=== PATIENT | male | born 1945 | race Caucasian/White ===

== ENCOUNTER 2019-08-22 11:58 | Emergency (ER) | payer OTHER, SELFPAY ==
[2019-08-22] VITALS (7 sets, daily range): BP systolic 121–140; BP diastolic 54–85; PULSE 50–109; RESP 12–19; TEMP 36.2; O2SAT 95–100; BMI 24.4
--- NOTE | 2019-08-22 12:19 | DI.RAD.S_ITS ---
PROCEDURE: XR CHEST 1V INDICATIONS: chest pain TECHNIQUE: One view of the chest was acquired. COMPARISON: None. FINDINGS: Surgical changes and devices: None. Lungs and pleura: Lungs are clear. No pleural effusions or pneumothorax. Mediastinum: Mediastinal contours appear normal. Heart size is normal. Bones and chest wall: No suspicious bony lesions. Overlying soft tissues appear unremarkable. IMPRESSION: 1. No acute cardiopulmonary disease. Dictated by: Fabio Horvath M.D. on 08/22/2019 at 11:43 Approved by: Fabio Horvath M.D. on 08/22/2019 at 11:43
--- NOTE | 2019-08-22 12:49 | DI.CT.S_ITS ---
PROCEDURE: CT HEAD/BRAIN WO CON INDICATIONS: sudden onset dizziness, near syncope TECHNIQUE: Noncontrast 4.5 mm thick angled axial sections acquired from the foramen magnum to the vertex, with coronal and sagittal reformats. For radiation dose reduction, the following was used: automated exposure control, adjustment of mA and/or kV according to patient size. COMPARISON: [facility], , BRAIN WITHOUT CONTRAST, 04/29/2017, 19:52. FINDINGS: Image quality: Excellent. CSF spaces: Basal cisterns are patent. No extra-axial fluid collections. There is mild cerebral volume loss with prominence of the ventricles and sulci. Brain: No intracranial hemorrhage, mass, or mass effect. Hayes-white matter interface is preserved. There are subcortical and periventricular white matter hypodensities consistent with mild chronic small vessel ischemic changes. Skull and face: Calvarium and visualized facial bones appear intact, without suspicious lesions. Sinuses: Visualized sinuses and mastoids are clear. IMPRESSION: 1. No acute intracranial abnormality. 2. Mild chronic white matter small vessel ischemic changes and cerebral volume loss. Dictated by: Fabio Horvath M.D. on 08/22/2019 at 12:45 Approved by: Fabio Horvath M.D. on 08/22/2019 at 12:48
--- NOTE | 2019-08-22 12:53 | ED.SYNCOPE ---
HPI - Syncope <SHYAM Ley - Last Filed: 08/22/19 18:55> General Chief Complaint: Syncope Stated Complaint: Almost passed out at [employer] Time Seen by Provider: 08/22/19 12:37 Source: patient and family Mode of arrival: Ambulatory Limitations: no limitations History of Present Illness HPI narrative: The patient is a 74-year-old male former smoker with a history of hypertension presents with his of near-syncope early this morning. He is insured, sitting and felt very woozy like is going to pass out. Then he felt better after few minutes. He states that this happened a week ago as well. Denies any chest pain, shortness of breath, current nausea vomiting, current lightheadedness or wooziness. Denies any dysuria. Complains of dry cough. Does state that he has some swelling of his extremities from time to time. He and his are very concerned as they are supposed to fly to [facility] on Friday. The patient's notes that she thinks that he might be depressed, was recently started on Prozac but stopped taking it. She is concerned about weight loss over the past several months, decreased imaging over the past several months. The patient was recently treated for shingles on his face, has been evaluated by a few ophthalmologists and states that is clearing up well. Review of Systems <SHYAM Ley - Last Filed: 08/22/19 18:55> Review of Systems Narrative: GENERAL: Denies chills, fatigue, malaise, fever, sweats. HEENT: Denies sinus pain, ear pain, sore throat, difficulty swallowing, dizziness. RESPIRATORY: Denies dyspnea, cough, wheezing, hemoptysis, sputum. CARDIOVASCULAR: See HPI GASTROINTESTINAL: Denies nausea, vomiting, abdominal pain, diarrhea, constipation, melena. : Denies dysuria, frequency, incontinence, hematuria, urinary retention. MUSCULOSKELETAL: denies weakness, joint pain, or bony pain SKIN: Denies rash, skin lesions, or other NEUROLOGIC: See HPI PSYCHIATRIC: No concerning psychosocial issues. 12 point review of systems is negative except for those stated above PFSH <SHYAM Ley - Last Filed: 08/22/19 18:55> Medical History (Updated 08/22/19 @ 18:50 by SHYAM Ley) Depression (Acute) Shingles (Acute) Social History Smoking Status: Former smoker Social History Smoking Status: Former smoker Exam <SHYAM Ley - Last Filed: 08/22/19 18:55> Narrative Exam Narrative: GENERAL: This is a well-nourished chronically ill appearing male in no acute distress HEAD: Atraumatic. Normocephalic. No temporal or scalp tenderness. EYES: Pupils equal round and reactive. Extraocular motions intact. No scleral icterus. No injection or drainage. ENT: Nose without bleeding, purulent drainage or septal hematoma. Throat without erythema, tonsillar hypertrophy or exudate. Uvula midline. Airway patent. NECK: Trachea midline. No JVD or lymphadenopathy. Supple, nontender, no meningeal signs. CARDIOVASCULAR: Regular rate and rhythm without murmurs, gallops, or rubs. RESPIRATORY: Clear to auscultation. Breath sounds equal bilaterally. No wheezes, rales, or rhonchi. No cough. No increased respiratory effort. No accessory muscle use. GASTROINTESTINAL: Abdomen soft, non-tender, nondistended. No hepato-splenomegaly, or palpable masses. No guarding. EXTREMITIES: No clubbing, cyanosis, or edema. No joint tenderness, effusion, or edema noted. BACK: Nontender without deformity or crepitance. No flank tenderness. NEURO: AOx3. Strength is equal in upper lower extremities bilaterally. No gross cranial nerve deficit. Clear speech. SKIN: Residual shingles noted over right side of head Initial Vital Signs Initial Vital Signs: Vital Signs Temperature 97.2 F L 08/22/19 12:11 Pulse Rate 56 L 08/22/19 12:11 Respiratory Rate 16 08/22/19 12:11 Blood Pressure 138/64 08/22/19 12:11 Pulse Oximetry 98 08/22/19 12:11 <Erick Ferro DO - Last Filed: 08/23/19 15:48> Initial Vital Signs Initial Vital Signs: Vital Signs Temperature 97.2 F L 08/22/19 12:11 Pulse Rate 56 L 08/22/19 12:11 Respiratory Rate 16 08/22/19 12:11 Blood Pressure 138/64 08/22/19 12:11 Pulse Oximetry 98 08/22/19 12:11 Course <Sarah ReedPARIS acostaBC - Last Filed: 08/22/19 18:55> Orders Ordered: ED Orders 08/22/19 12:19 XR chest 1V Stat EKG-12 Lead Stat 08/22/19 12:49 CT head/brain wo con Stat 08/22/19 13:30 Complete Blood Count AUTO DIFF Stat Comprehensive Metabolic Panel Stat Lipase Stat Magnesium Stat Partial Thromboplastin Time Stat Prothrombin Time INR Stat Troponin & CK Cardiac Panel Stat 08/22/19 16:25 Troponin & CK Cardiac Panel Stat Vital Signs Vital signs: Vital Signs - 8 hr 08/22/19 12:11 08/22/19 13:00 08/22/19 14:00 Temperature 97.2 F L Pulse Rate 56 L 60 50 L Respiratory Rate 16 19 12 Blood Pressure 138/64 Blood Pressure [Right Arm] 121/63 140/54 L Pulse Oximetry 98 100 100 08/22/19 14:54 08/22/19 16:12 08/22/19 16:15 Temperature Pulse Rate 109 H 64 58 L Respiratory Rate 12 Blood Pressure Blood Pressure [Right Arm] 124/85 122/68 122/68 Pulse Oximetry 95 99 99 08/22/19 16:30 Temperature Pulse Rate 55 L Respiratory Rate 15 Blood Pressure Blood Pressure [Right Arm] 132/64 Pulse Oximetry 100 <Erick Ferro DO - Last Filed: 08/23/19 15:48> Orders Ordered: ED Orders 08/22/19 12:19 XR chest 1V Stat EKG-12 Lead Stat 08/22/19 12:49 CT head/brain wo con Stat 08/22/19 13:30 Complete Blood Count AUTO DIFF Stat Comprehensive Metabolic Panel Stat Lipase Stat Magnesium Stat Partial Thromboplastin Time Stat Prothrombin Time INR Stat Troponin & CK Cardiac Panel Stat 08/22/19 16:25 Troponin & CK Cardiac Panel Stat Vital Signs Vital signs: Vital Signs - 8 hr 08/22/19 12:11 08/22/19 13:00 08/22/19 14:00 Temperature 97.2 F L Pulse Rate 56 L 60 50 L Respiratory Rate 16 19 12 Blood Pressure 138/64 Blood Pressure [Right Arm] 121/63 140/54 L Pulse Oximetry 98 100 100 09/22/19 14:54 08/22/19 16:12 08/22/19 16:15 Temperature Pulse Rate 109 H 64 58 L Respiratory Rate 12 Blood Pressure Blood Pressure [Right Arm] 124/85 122/68 122/68 Pulse Oximetry 95 99 99 08/22/19 16:30 Temperature Pulse Rate 55 L Respiratory Rate 15 Blood Pressure Blood Pressure [Right Arm] 132/64 Pulse Oximetry 100 MDM - Syncope <Sarah Bishop, [employer] INSTALLER-BC - Last Filed: 08/22/19 18:55> Lab Data Result diagrams: 08/22/19 13:30 08/22/19 13:30 Labs: Lab Results 08/22/19 08/22/19 08/22/19 Range/Units 13:30 13:30 13:30 WBC 8.7 (4.5-11.0) X10^3/uL RBC 4.71 (4.5-5.9) X10^6/uL Hgb 15.3 (13.5-17.5) g/dL Hct 43.0 (41-53) % MCV 91.4 (80-100) fL MCH 32.5 (26-34) PG MCHC 35.6 (30-36) % RDW 14.3 (11.6-14.8) % Plt Count 348 (150-400) X10^3/uL Neut % (Auto) 66.1 (50-75) % Lymph % (Auto) 18.6 L (25-40) % [place] % (Auto) 9.4 (3-14) % Eos % (Auto) 4.6 H (2-4) % Baso % (Auto) 1.3 (0-2) % Neut # (Auto) 5800 (2182-0011) /uL Lymph # (Auto) 1600 (9326-2249) /uL [place] # (Auto) 800 (0-900) /uL Eos # (Auto) 400 (0-450) /uL Baso # (Auto) 100 (0-100) /uL PT 12.2 (10.1-12.7) SECONDS INR 1.1 (0.9-1.3) APTT 33 (26.4-36.2) SECONDS Sodium 134 L (137-145) mmol/L Potassium 4.4 (3.4-5.1) mmol/L Chloride 94 L (98-107) mmol/L Carbon Dioxide 29 (22-32) mmol/L BUN 10 (9-20) mg/dL Creatinine 0.90 (0.66-1.25) mg/dL Estimated GFR > 60.0 (>60) mL/min BUN/Creatinine Ratio 11.1 (6-22) Glucose 104 (80-110) mg/dL Calcium 9.6 (8.4-10.2) mg/dL Magnesium (1.6-2.3) mg/dL Total Bilirubin 0.9 (0.2-1.3) mg/dL AST 30 (17-59) IU/L ALT 17 L (21-72) IU/L Alkaline Phosphatase 54 (38-126) U/L Total Creatine Kinase 37 L (55-170) U/L CK-MB (CK-2) TNP CK-MB (CK-2) Rel Index TNP Troponin I < 0.012 (0.01-0.034) ng/mL Total Protein 6.7 (6.3-8.2) g/dL Albumin 4.0 (3.5-5.0) g/dL Globulin 2.7 (1.7-4.1) g/dL Albumin/Globulin Ratio 1.5 (1.0-2.8) Lipase 72 (23-300) U/L 08/22/19 08/22/19 Range/Units 13:30 16:25 WBC (4.5-11.0) X10^3/uL RBC (4.5-5.9) X10^6/uL Hgb (13.5-17.5) g/dL Hct (41-53) % MCV (80-100) fL MCH (26-34) PG MCHC (30-36) % RDW (11.6-14.8) % Plt Count (150-400) X10^3/uL Neut % (Auto) (50-75) % Lymph % (Auto) (25-40) % [place] % (Auto) (3-14) % Eos % (Auto) (2-4) % Baso % (Auto) (0-2) % Neut # (Auto) (5555-6235) /uL Lymph # (Auto) (6984-8297) /uL [place] # (Auto) (0-900) /uL Eos # (Auto) (0-450) /uL Baso # (Auto) (0-100) /uL PT (10.1-12.7) SECONDS INR (0.9-1.3) APTT (26.4-36.2) SECONDS Sodium (137-145) mmol/L Potassium (3.4-5.1) mmol/L Chloride (98-107) mmol/L Carbon Dioxide (22-32) mmol/L BUN (9-20) mg/dL Creatinine (0.66-1.25) mg/dL Estimated GFR (>60) mL/min BUN/Creatinine Ratio (6-22) Glucose (80-110) mg/dL Calcium (8.4-10.2) mg/dL Magnesium 1.7 (1.6-2.3) mg/dL Total Bilirubin (0.2-1.3) mg/dL AST (17-59) IU/L ALT (21-72) IU/L Alkaline Phosphatase (38-126) U/L Total Creatine Kinase 31 L (55-170) U/L CK-MB (CK-2) TNP CK-MB (CK-2) Rel Index TNP Troponin I < 0.012 (0.01-0.034) ng/mL Total Protein (6.3-8.2) g/dL Albumin (3.5-5.0) g/dL Globulin (1.7-4.1) g/dL Albumin/Globulin Ratio (1.0-2.8) Lipase (23-300) U/L Urine Dip Bedside Urine Glucose Negative Bedside Urine Bilirubin - Negative Bedside Urine Ketone - Negative Urine Specific [place] 1.010 Bedside Urine Occult Blood - Negative Bedside Urine pH 7.0 Bedside Urine Protein - Negative Bedside Urine Urobilinogen - Negative Bedside Urine Nitrite - Negative Bedside Urine Leukocytes - Negative Esterase Imaging Data CT scan - head: Radiologist's impression: [address] [address] [address] Scan Report Signed Patient: Neymar Don RMR#: [id number] : 3Acct:[id number] Age/Sex: 74 / MDate of Service: 08/22/19 Loc: ED Accession Number: [id number] Procedure: CT head/brain wo con Ordering Provider: Sarah BishopBC PROCEDURE: CT HEAD/BRAIN WO CON INDICATIONS: sudden onset dizziness, near syncope TECHNIQUE: Noncontrast 4.5 mm thick angled axial sections acquired from the foramen magnum to the vertex, with coronal and sagittal reformats. For radiation dose reduction, the following was used: automated exposure control, adjustment of mA and/or kV according to patient size. COMPARISON: [facility], , BRAIN WITHOUT CONTRAST, 04/29/2017, 19:52. FINDINGS: Image quality: Excellent. CSF spaces: Basal cisterns are patent. No extra-axial fluid collections. There is mild cerebral volume loss with prominence of the ventricles and sulci. Brain: No intracranial hemorrhage, mass, or mass effect. Hayes-white matter interface is preserved. There are subcortical and periventricular white matter hypodensities consistent with mild chronic small vessel ischemic changes. Skull and face: Calvarium and visualized facial bones appear intact, without suspicious lesions. Sinuses: Visualized sinuses and mastoids are clear. IMPRESSION: 1. No acute intracranial abnormality. 2. Mild chronic white matter small vessel ischemic changes and cerebral volume loss. Dictated by: Fabio Horvath M.D. on 08/22/2019 at 12:45 Approved by: Fabio Horvath M.D. on 08/22/2019 at 12:48 Chest x-ray: Radiologist's impression: [place] [address] XRay Report Signed Patient: Neymar Don RMR#: [id number] : 3Acct:[id number] Age/Sex: 74 / MDate of Service: 08/22/19 Loc: ED Accession Number: [id number] Procedure: XR chest 1V Ordering Provider: Erick Ferro D.O. PROCEDURE: XR CHEST 1V INDICATIONS: chest pain TECHNIQUE: One view of the chest was acquired. COMPARISON: None. FINDINGS: Surgical changes and devices: None. Lungs and pleura: Lungs are clear. No pleural effusions or pneumothorax. Mediastinum: Mediastinal contours appear normal. Heart size is normal. Bones and chest wall: No suspicious bony lesions. Overlying soft tissues appear unremarkable. IMPRESSION: 1. No acute cardiopulmonary disease. Dictated by: Fabio Horvath M.D. on 08/22/2019 at 11:43 Approved by: Fabio Horvath M.D. on 08/22/2019 at 11:43 ECG Data Attestation: I personally reviewed and interpreted this ECG as follows: Interpretation: Sinus bradycardia. Ventricular rate 50. No ST elevation or depression noted. No ectopy noted p.r. interval 196. QRS duration 80. MDM Narrative Medical decision making narrative: The patient is a 74-year-old male who presents for chief complaint of a few episodes of near-syncope. He states he had 1 today, last week as well as over the summer. He has a normal cardiac evaluation, with two negative troponins. He is GCS 15 without complaint throughout his stay in the emergency department. He had no episodes of near-syncope. CBC CMP were within normal limits for the patient. He has a negative chest x-ray as well as negative head CT. I feel that the patient may benefit from a Holter monitor and further evaluation such as vitamin D testing etc. I encouraged the patient to follow up with his PCP. The patient and his state understanding, and expressed concern regarding traveling to [facility]. I discussed at length that I feel as though he would benefit from more medical workup prior to travel of this magnitude. The patient is without shortness of breath without chest pain or near syncope throughout his stay in the emergency department. Patient and his state request to be discharged. I discussed at length coming back to the ER for any acute concerns such as concern of heart attack or stroke. Patient and state understanding of return precautions as well follow-up care. <Erick Ferro DO - Last Filed: 08/23/19 15:48> Lab Data Labs: Lab Results 08/22/19 08/22/19 08/22/19 Range/Units 13:30 13:30 13:30 WBC 8.7 (4.5-11.0) X10^3/uL RBC 4.71 (4.5-5.9) X10^6/uL Hgb 15.3 (13.5-17.5) g/dL Hct 43.0 (41-53) % MCV 91.4 (80-100) fL MCH 32.5 (26-34) PG MCHC 35.6 (30-36) % RDW 14.3 (11.6-14.8) % Plt Count 348 (150-400) X10^3/uL Neut % (Auto) 66.1 (50-75) % Lymph % (Auto) 18.6 L (25-40) % [place] % (Auto) 9.4 (3-14) % Eos % (Auto) 4.6 H (2-4) % Baso % (Auto) 1.3 (0-2) % Neut # (Auto) 5800 (3381-0873) /uL Lymph # (Auto) 1600 (8086-3722) /uL [place] # (Auto) 800 (0-900) /uL Eos # (Auto) 400 (0-450) /uL Baso # (Auto) 100 (0-100) /uL PT 12.2 (10.1-12.7) SECONDS INR 1.1 (0.9-1.3) APTT 33 (26.4-36.2) SECONDS Sodium 134 L (137-145) mmol/L Potassium 4.4 (3.4-5.1) mmol/L Chloride 94 L (98-107) mmol/L Carbon Dioxide 29 (22-32) mmol/L BUN 10 (9-20) mg/dL Creatinine 0.90 (0.66-1.25) mg/dL Estimated GFR > 60.0 (>60) mL/min BUN/Creatinine Ratio 11.1 (6-22) Glucose 104 (80-110) mg/dL Calcium 9.6 (8.4-10.2) mg/dL Magnesium (1.6-2.3) mg/dL Total Bilirubin 0.9 (0.2-1.3) mg/dL AST 30 (17-59) IU/L ALT 17 L (21-72) IU/L Alkaline Phosphatase 54 (38-126) U/L Total Creatine Kinase 37 L (55-170) U/L CK-MB (CK-2) TNP CK-MB (CK-2) Rel Index TNP Troponin I < 0.012 (0.01-0.034) ng/mL Total Protein 6.7 (6.3-8.2) g/dL Albumin 4.0 (3.5-5.0) g/dL Globulin 2.7 (1.7-4.1) g/dL Albumin/Globulin Ratio 1.5 (1.0-2.8) Lipase 72 (23-300) U/L 08/22/19 08/22/19 Range/Units 13:30 16:25 WBC (4.5-11.0) X10^3/uL RBC (4.5-5.9) X10^6/uL Hgb (13.5-17.5) g/dL Hct (41-53) % MCV (80-100) fL MCH (26-34) PG MCHC (30-36) % RDW (11.6-14.8) % Plt Count (150-400) X10^3/uL Neut % (Auto) (50-75) % Lymph % (Auto) (25-40) % [place] % (Auto) (3-14) % Eos % (Auto) (2-4) % Baso % (Auto) (0-2) % Neut # (Auto) (1383-5380) /uL Lymph # (Auto) (4684-8571) /uL [place] # (Auto) (0-900) /uL Eos # (Auto) (0-450) /uL Baso # (Auto) (0-100) /uL PT (10.1-12.7) SECONDS INR (0.9-1.3) APTT (26.4-36.2) SECONDS Sodium (137-145) mmol/L Potassium (3.4-5.1) mmol/L Chloride (98-107) mmol/L Carbon Dioxide (22-32) mmol/L BUN (9-20) mg/dL Creatinine (0.66-1.25) mg/dL Estimated GFR (>60) mL/min BUN/Creatinine Ratio (6-22) Glucose (80-110) mg/dL Calcium (8.4-10.2) mg/dL Magnesium 1.7 (1.6-2.3) mg/dL Total Bilirubin (0.2-1.3) mg/dL AST (17-59) IU/L ALT (21-72) IU/L Alkaline Phosphatase (38-126) U/L Total Creatine Kinase 31 L (55-170) U/L CK-MB (CK-2) TNP CK-MB (CK-2) Rel Index TNP Troponin I < 0.012 (0.01-0.034) ng/mL Total Protein (6.3-8.2) g/dL Albumin (3.5-5.0) g/dL Globulin (1.7-4.1) g/dL Albumin/Globulin Ratio (1.0-2.8) Lipase (23-300) U/L Urine Dip Bedside Urine Glucose Negative Bedside Urine Bilirubin - Negative Bedside Urine Ketone - Negative Urine Specific [place] 1.010 Bedside Urine Occult Blood - Negative Bedside Urine pH 7.0 Bedside Urine Protein - Negative Bedside Urine Urobilinogen - Negative Bedside Urine Nitrite - Negative Bedside Urine Leukocytes - Negative Esterase Discharge Plan Departure Patient Disposition: Home Clinical Impression: Near syncope Discharge Date/Time: 08/22/19 17:37 Instructions: DI for Syncope in Adults (Fainting), Combating Dizziness in Older Adults, DI for Dizziness-Nonvertigo Activity Restrictions/Additional Instructions: You workup today came back grossly normal. Given the long duration of your symptoms, and chronic history I suggest that he follow up with primary care provider in the next few days. I suggest not traveling overseas until cleared by his PCP, and would be personally concerned if you fly overseas. I would be concerned about another near syncopal event. Please come back to the emergency department for any acute concerns such as chest pain, shortness of breath, heart attack or stroke. Referrals: [facility] [Outside] Srinivasa Garcia MD [Primary Care Provider] -
--- NOTE | 2019-08-22 13:50 | CM.MNRNOTE ---
noted bilateral arms discoloration , cool to touch, states, his baseline.
--- NOTE | 2019-08-22 13:51 | PC.NURSE ---
pt and spouse states, 2nd time occurance pt with near syncope while in buddhism, also pt preparing for vacation tomorrow. denies fever,vomiting or diarrhea.
[2019-08-22 14:02] LABS: Add Manual Diff / Slide Review NO; Basophils Absolute Auto 100 /uL (0-100); Basophils Percent Auto 1.3 % (0-2); Eosinophils Absolute Auto 400 /uL (0-450); Eosinophils Percent Auto 4.6 % (2-4); Hemoglobin 15.3 g/dL (13.5-17.5); Lymphocytes Absolute Auto 1600 /uL (1100-4500); Lymphocytes Percent Auto 18.6 % (25-40); Mean Corpuscular HGB Conc 35.6 % (30-36); Mean Corpuscular Hemoglobin 32.5 PG (26-34); Mean Corpuscular Volume 91.4 fL (80-100); Monocytes Absolute Auto 800 /uL (0-900); Monocytes Percent Auto 9.4 % (3-14); Neutrophils Absolute Auto 5800 /uL (1500-7000); Neutrophils Percent Auto 66.1 % (50-75); Platelet Count 348 X10^3/uL (150-400); Red Blood Cell Count 4.71 X10^6/uL (4.5-5.9); Red Cell Distribution Width 14.3 % (11.6-14.8); White Blood Cell Count 8.7 X10^3/uL (4.5-11.0)
[2019-08-22 14:03] LABS: INR 1.1 (0.9-1.3); Prothrombin Time 12.2 SECONDS (10.1-12.7)
[2019-08-22 14:06] LABS: PTT Partial Thromboplastin Tim 33 SECONDS (26.4-36.2)
[2019-08-22 14:08] LABS: Alanine Aminotransferase 17 IU/L (21-72); Albumin Globulin Ratio 1.5 (1.0-2.8); Alkaline Phosphatase 54 U/L (38-126); Aspartate Aminotransferase 30 IU/L (17-59); BUN Creatinine Ratio 11.1 (6-22); Bilirubin Total 0.9 mg/dL (0.2-1.3); Blood Urea Nitrogen 10 mg/dL (9-20); Calcium 9.6 mg/dL (8.4-10.2); Carbon Dioxide 29 mmol/L (22-32); Chloride 94 mmol/L (98-107); Creatine Kinase 37 U/L (55-170); Estimated Glomerular Filt Rate > 60.0 mL/min (>60); Globulin 2.7 g/dL (1.7-4.1); Glucose 104 mg/dL (80-110); HEMOLYSIS < 15 (0-50); Lipase 72 U/L (23-300); Magnesium 1.7 mg/dL (1.6-2.3); Potassium 4.4 mmol/L (3.4-5.1); Sodium 134 mmol/L (137-145); Total Protein 6.7 g/dL (6.3-8.2)
[2019-08-22 14:19] LABS: Troponin I < 0.012 ng/mL (0.01-0.034)
[2019-08-22 16:53] LABS: Creatine Kinase 31 U/L (55-170)
[2019-08-22 17:05] LABS: Troponin I < 0.012 ng/mL (0.01-0.034)
== END 2019-08-22 17:37 | disposition home or self-care (01) ==
PROVIDERS: Emergency Medicine; Emergency Provider Nurse Practitioner Family; PCP Family Medicine
DX: R55 Syncope and collapse (principal)
CPT/HCPCS: 36415; 36591; 70450; 71045; 80053; 81003; 82550; 83690; 83735; 84484; 85025; 85610; 85730; 93005; 93010; 99283; 99285

== ENCOUNTER → 2021-02-01 09:32 | Outpatient (CLI) | payer OTHER, SELFPAY ==
--- NOTE | 2021-02-01 09:35 | DI.US.S_ITS ---
PROCEDURE: US ABDOMEN COMPLETE INDICATIONS: GERD TECHNIQUE: Real-time scanning was performed of the abdominal and retroperitoneal organs, with image documentation. COMPARISON: None. FINDINGS: Liver: Liver is normal in size and homogeneous in echotexture. Gallbladder: Gallbladder appears normal. Biliary ducts: Intrahepatic bile ducts are non-dilated. Extrahepatic bile duct caliber measures 1.8 mm. Normal is 6-7 mm or less in diameter, or 10 mm or less post-cholecystectomy. Pancreas: Visualized portions of the pancreas are sonographically normal. Spleen: Spleen is normal in size and homogeneous in echotexture. Kidneys: Kidneys are normal in size and echotexture. Right kidney measures 10.7 cm long; left kidney measures 10.9 cm long. No hydronephrosis or nephrolithiasis. No solid masses. Aorta: Visualized aorta is normal in caliber at less than 3 cm. Iliacs: Proximal common iliac arteries are normal in caliber at less than 2.5 cm. IVC: Intrahepatic inferior vena cava is patent. Miscellaneous: No free abdominal fluid. IMPRESSION: Normal-appearing gallbladder, no biliary distention is found. Dictated by: Anderson Peña M.D. on 02/01/2021 at 15:30 Approved by: Anderson Peña M.D. on 02/01/2021 at 15:32
== END ==
PROVIDERS: PCP Family Medicine; Referring Provider Physician Assistant Medical; Visit Provider Physician Assistant Medical
DX: K21.9 Gastro-esophageal reflux disease without esophagitis (principal)
CPT/HCPCS: 76700

== ENCOUNTER → 2021-05-10 10:18 | Outpatient (CLI) | payer OTHER, SELFPAY ==
--- NOTE | 2021-05-10 | DI.RAD.S_ITS ---
PROCEDURE: XR LUMBAR SPINE 2-3V INDICATIONS: LOW BACK PAIN TECHNIQUE: 3 views of the lumbar spine were acquired. COMPARISON: None. FINDINGS: Bones: 5 [id number] vertebrae are present. There is grade 1 anterolisthesis of L5 on S1. No vertebral body compression fractures. No suspicious bony lesions. Degenerative disc disease is present, severe at L2-L3, moderate at L3-L4, L4-L5 and L5-S1, and mild at L1-L2. Severe facet arthropathy at L3-L4, L4-L5 and L5-S1. Soft tissues: Overlying bowel gas pattern is normal. Vascular calcifications consistent with atherosclerosis. 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 Dictated by: Atif Pierre M.D. on 05/10/2021 at 11:17 Approved by: Atif Pierre M.D. on 05/10/2021 at 11:18
--- NOTE | 2021-05-10 | DI.RAD.S_ITS ---
PROCEDURE: XR PELVIS 1-2V INDICATIONS: LOW BACK PAIN TECHNIQUE: Single frontal view(s) of the pelvis acquired. COMPARISON: None. 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 Note also is made of low lumbosacral spine degenerative disc disease greater on the right than the left at L4-5 and partial lumbar morphology at S1.. No suspicious bony lesions. Soft tissues: Visualized bowel gas pattern is normal. No suspicious soft tissue calcifications. 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 Dictated by: Anderson Peña M.D. on 05/10/2021 at 10:59 Approved by: Anderson Peña M.D. on 05/10/2021 at 11:01
== END ==
PROVIDERS: PCP Physician Assistant Medical; Referring Provider Internal Medicine Rheumatology; Visit Provider Internal Medicine Rheumatology
DX: M54.5 Low back pain (principal); M51.36 Other intervertebral disc degeneration, lumbar region; M47.817 Spondylosis without myelopathy or radiculopathy, lumbosacral region; M47.816 Spondylosis without myelopathy or radiculopathy, lumbar region; M16.0 Bilateral primary osteoarthritis of hip
CPT/HCPCS: 72100; 72170

== ENCOUNTER 2021-07-29 11:00 | Emergency (ER) | payer OTHER, SELFPAY ==
[2021-07-29] VITALS (13 sets, daily range): BP systolic 118–146; BP diastolic 59–70; PULSE 52–77; RESP 10–17; TEMP 36.6; O2SAT 97–100; BMI 25.1
--- NOTE | 2021-07-29 11:07 | ED_ITS ---
HPI - Syncope General Chief Complaint: Syncope Stated Complaint: near syncope Time Seen by Provider: 07/29/21 11:07 History of Present Illness HPI narrative: Male former smoker history of hypertension is and history of near syncope presenting with a near syncopal episode this morning. He states that he was standing in anglican for about 10 minutes he got extremely diaphoretic possibly lightheaded and someone sat him down in anglican. He was awake but not really talking or responding for a couple of minutes. He did not fall or hit his head. He has no numbness tingling or weakness. Vitals were stable for EMS. He states he did not eat breakfast today he had a cup of coffee which is not abnormal for him. This has happened to him least once before and he was evaluated at this hospital. He denies any chest pain palpitations or shortness of breath. He denies any tunnel vision. states that he has actually had multiple episodes of syncopal or near syncopal episodes. He has previously worn a Holter monitor for 30 days but it was relatively inconclusive. Unclear if he has ever had carotid Dopplers. Review of Systems Review of Systems Narrative: GENERAL: Denies chills, fatigue, malaise, fever, sweats, travel HEENT: Denies sinus pain, ear pain, sore throat, difficulty swallowing, neck pain RESPIRATORY: Denies dyspnea, cough, wheezing, hemoptysis, sputum. CARDIOVASCULAR: Denies chest pain, palpitations, orthopnea, edema GASTROINTESTINAL: Denies nausea, vomiting, abdominal pain, diarrhea, constipation, melena. : Denies dysuria, frequency, incontinence, hematuria, urinary retention, flank pain. MUSCULOSKELETAL: Denies weakness, joint pain, or bony pain SKIN: No rash, no erythema, no pruritus NEUROLOGIC: See HPI PSYCHIATRIC: No concerning psychosocial issues. 12 point review of systems is negative except for those stated above and HPI Patient History Medical History (Updated 07/29/21 @ 13:40 by Luba Greene DO) Depression Shingles Social History Smoking Status: Former smoker Smoking Status: Former smoker alcohol intake frequency: 0-2 drinks per day Substance Use Type: does not use Exam Initial Vital Signs Initial Vital Signs: Vital Signs Temperature 97.8 F 07/29/21 11:12 Pulse Rate 52 L 07/29/21 11:12 Respiratory Rate 16 07/29/21 11:12 Blood Pressure 146/70 H 07/29/21 11:12 Pulse Oximetry 99 07/29/21 11:12 GENERAL: Alert well-appearing 76-year-old male HEENT: Head atraumatic,EOMI, pupils reactive, face symmetric, [moist] mucous membranes CARDIOVASCULAR: Regular rate and rhythm without murmurs, rubs or gallops. RESPIRATORY: Breath sounds equal bilaterally, no wheezes rales or rhonchi. ABDOMEN: Soft, nontender. Normoactive bowel sounds all 4 quadrants. No guarding or rebound. EXTREMITIES: Normal range of motion, no clubbing or edema. Neurovascularly intact NEUROLOGICAL: Alert and oriented x4.Normal gait and speech. Cranial nerves II through XII grossly intact. [Good dolcrr-fq-pnvb, good obmu-ou-hlft, strength equal bilaterally, no dysarthria or aphasia, sensation in tact to soft touch bilaterally, no visual changes, no facial droop] SKIN: Warm, dry, no laceration, no petechiae, no rashes or lesions. Scores NIH Stroke Scale Level of Conciousness: Alert, keenly responsive Ask month/age: Answers both questions correctly. Open/close eyes, close hand: Performs both tasks correctly Best gaze horizontal: Normal Visual aguilar: No visual loss Facial palsy: Normal symetrical movement Left arm drift: No drift for full 10 sec Right arm drift: No drift for full 10 sec Left leg drift: No drift for full 5 sec Right leg drift: No drift for full 5 sec Limb ataxia: Absent Sensory on face/arms/legs: Normal, no sensory loss Best language: No aphasia, normal Dysarthria: Normal Extinction or inattention: No abnormality Total NIH Stroke scale score: 0 Course Orders Ordered: ED Orders 07/29/21 11:07 CT head/brain wo con Stat 07/29/21 11:09 XR chest 1V Stat EKG-12 Lead Stat 07/29/21 11:10 Complete Blood Count AUTO DIFF Stat Comprehensive Metabolic Panel Stat Lipase Stat Troponin & CK Cardiac Panel Stat 07/29/21 12:37 CT angio head and neck Stat Vital Signs Vital signs: Vital Signs - 8 hr 07/29/21 11:12 07/29/21 11:28 07/29/21 11:30 Temperature 97.8 F Pulse Rate 52 L 58 L 56 L Pulse Rate [Orthostatic Lying] Pulse Rate [Orthostatic Sitting] Pulse Rate [Orthostatic Standing] Respiratory Rate 16 Blood Pressure 146/70 H Blood Pressure [Orthostatic Lying] Blood Pressure [Orthostatic Sitting] Blood Pressure [Orthostatic Standing] Pulse Oximetry 99 99 100 07/29/21 12:00 07/29/21 12:09 07/29/21 12:10 Temperature Pulse Rate 60 55 L 61 Pulse Rate [Orthostatic Lying] Pulse Rate [Orthostatic Sitting] Pulse Rate [Orthostatic Standing] Respiratory Rate 12 10 L 15 Blood Pressure 124/61 130/60 Blood Pressure [Orthostatic Lying] Blood Pressure [Orthostatic Sitting] Blood Pressure [Orthostatic Standing] Pulse Oximetry 97 99 98 07/29/21 12:11 07/29/21 12:13 07/29/21 12:30 Temperature Pulse Rate 67 54 L Pulse Rate [Orthostatic Lying] 54 L Pulse Rate [Orthostatic Sitting] 70 Pulse Rate [Orthostatic Standing] 65 Respiratory Rate 13 10 L Blood Pressure 126/59 L Blood Pressure [Orthostatic Lying] 124/61 Blood Pressure [Orthostatic Sitting] 130/60 Blood Pressure [Orthostatic Standing] 129/59 L Pulse Oximetry 97 100 07/29/21 13:00 07/29/21 13:18 07/29/21 13:30 Temperature Pulse Rate 77 73 71 Pulse Rate [Orthostatic Lying] Pulse Rate [Orthostatic Sitting] Pulse Rate [Orthostatic Standing] Respiratory Rate 13 17 10 L Blood Pressure 146/65 H Blood Pressure [Orthostatic Lying] Blood Pressure [Orthostatic Sitting] Blood Pressure [Orthostatic Standing] Pulse Oximetry 100 98 99 07/29/21 13:41 Temperature Pulse Rate 73 Pulse Rate [Orthostatic Lying] Pulse Rate [Orthostatic Sitting] Pulse Rate [Orthostatic Standing] Respiratory Rate 12 Blood Pressure 118/65 Blood Pressure [Orthostatic Lying] Blood Pressure [Orthostatic Sitting] Blood Pressure [Orthostatic Standing] Pulse Oximetry 98 MDM - Syncope Lab Data Result diagrams: 07/29/21 11:10 07/29/21 11:10 Labs: Lab Results 07/29/21 07/29/21 Range/Units 11:10 11:10 WBC 3.6 L (4.5-11.0) X10^3/uL RBC 4.46 L (4.5-5.9) X10^6/uL Hgb 14.5 (13.5-17.5) g/dL Hct 41.8 (41-53) % MCV 93.8 (80-100) fL MCH 32.5 (26-34) PG MCHC 34.7 (30-36) % RDW 13.1 (11.6-14.8) % Plt Count 260 (150-400) X10^3/uL Neut % (Auto) 56.8 (50-75) % Lymph % (Auto) 25.3 (25-40) % [place] % (Auto) 13.8 (3-14) % Eos % (Auto) 2.9 (2-4) % Baso % (Auto) 1.2 (0-2) % Neut # (Auto) 2100 (7781-0645) /uL Lymph # (Auto) 900 L (6205-3171) /uL Fountain # (Auto) 500 (0-900) /uL Eos # (Auto) 100 (0-450) /uL Baso # (Auto) 0 (0-100) /uL Sodium 133 L (137-145) mmol/L Potassium 3.8 (3.4-5.1) mmol/L Chloride 100 (98-107) mmol/L Carbon Dioxide 26 (22-32) mmol/L BUN 6 L (9-20) mg/dL Creatinine 0.70 (0.66-1.25) mg/dL Estimated GFR > 60.0 (>60) mL/min BUN/Creatinine Ratio 8.6 (6-22) Glucose 104 (80-110) mg/dL Calcium 8.8 (8.4-10.2) mg/dL Total Bilirubin 0.8 (0.2-1.3) mg/dL AST 30 (17-59) IU/L ALT 16 (<50) IU/L Alkaline Phosphatase 55 (38-126) U/L Total Creatine Kinase 60 (55-170) U/L CK-MB (CK-2) TNP CK-MB (CK-2) Rel Index TNP Troponin I < 0.012 (0.01-0.034) ng/mL Total Protein 6.6 (6.3-8.2) g/dL Albumin 3.9 (3.5-5.0) g/dL Globulin 2.7 (1.7-4.1) g/dL Albumin/Globulin Ratio 1.4 (1.0-2.8) Lipase 107 (23-300) U/L Point of Care Testing Glucose POC 128 Urine Dip Bedside Urine Glucose Negative Bedside Urine Bilirubin - Negative Bedside Urine Ketone - Negative Urine Specific [place] 1.010 Bedside Urine Occult Blood - Negative Bedside Urine pH 6 Bedside Urine Protein - Negative Bedside Urine Urobilinogen - Negative Bedside Urine Nitrite - Negative Bedside Urine Leukocytes - Negative Esterase Imaging Data CT scan - head: Radiologist's Impression: PROCEDURE: CT HEAD/BRAIN WO CON INDICATIONS: near syncope TECHNIQUE: Noncontrast 4.5 mm thick angled axial sections acquired from the foramen magnum to the vertex, with coronal and sagittal reformats. For radiation dose reduction, the following was used: automated exposure control, adjustment of mA and/or kV according to patient size. COMPARISON: [facility], CT, CT HEAD/BRAIN WO CON, 08/22/2019, 13:33. FINDINGS: Image quality: Excellent. CSF spaces: Basal cisterns are patent. No extra-axial fluid collections. The ventricles are symmetric in size and shape. Brain: No intracranial bleeds or masses. There is cerebral volume loss for age, with resultant ventricular and sulcal prominence. There are periventricular and deep white matter chronic small vessel ischemic changes. There is intracranial internal carotid artery atherosclerosis. Skull and face: Calvarium and visualized facial bones appear intact, without suspicious lesions. Sinuses: Visualized sinuses and mastoids are clear. IMPRESSION: 1. No acute intracranial abnormality. 2. Chronic small vessel ischemic changes and parenchymal volume loss. Dictated by: Wilver Ventura M.D. on 07/29/2021 at 10:42 Approved by: Wilver Ventura M.D. on 07/29/2021 at 10:44 Chest x-ray: Radiologist's Impression: PROCEDURE: XR CHEST 1V INDICATIONS: near syncope TECHNIQUE: One view of the chest was acquired. COMPARISON: [facility], CR, XR CHEST 1V, 08/22/2019, 12:24. FINDINGS: Surgical changes and devices: None. Lungs and pleura: Lungs are clear. No pleural effusions or pneumothorax. Mediastinum: Mediastinal contours appear normal. Heart size is normal. Bones and chest wall: Subacute to remote posterolateral right sided rib fractures. No suspicious bony lesions. Overlying soft tissues appear unremarkable. IMPRESSION: No acute cardiopulmonary abnormality. Dictated by: Wilver Ventura M.D. on 07/29/2021 at 10:38 Approved by: Wilver Ventura M.D. on 07/29/2021 at 10:41 CTA - brain/neck: Radiologist's Impression: This report includes an Addendum and supersedes previous reports for this exam. PROCEDURE: CT ANGIO HEAD AND NECK INDICATIONS: multple syncopal episodes TECHNIQUE: After the administration of intravenous contrast, 1 mm thick sections acquired from the aortic arch through the [place] of [place]. Post-contrast 4.5 mm thick sections then re-acquired from the foramen magnum to the vertex. 3-dimensional rzarfgi-qjpesadbv-cpmnagsdui (MIP) and/or volume rendering reformats were acquired of the central intracranial vasculature and neck separately. COMPARISON: Same-day CT head. FINDINGS: Image quality: Excellent. BRAIN: CSF spaces: Ventricles are normal in size and shape. Basal cisterns are patent. No extra-axial fluid collections. Brain: No midline shift. No intracranial bleeds or masses. Hayes-white matter interface appears intact. Skull and face: Calvarium and facial bones appear intact, without suspicious lesions. Orbits appear normal. Sinuses: Sinuses and mastoids are clear. HEAD CT ANGIOGRAPHY: Anterior circulation: Intracranial internal carotid arteries are normal in size and flow. The flow within the paired anterior cerebral arteries is normal and symmetric. The flow within the middle cerebral arteries is normal and symmetric. The anterior communicating artery is seen. No aneurysms are seen. Posterior circulation: Visualized portions of the vertebral arteries demonstrate normal caliber, and join to form a normal appearing basilar artery. Flow within the posterior cerebral arteries is normal and symmetric. No aneurysms are seen. NECK CT ANGIOGRAPHY: Carotid system: The great vessels demonstrate a conventional anatomy as they arise from the aortic arch. The origins of the common carotid arteries appear patent. The common carotid arteries demonstrate normal caliber and courses. The bifurcation regions are both patent. There is calcific and noncalcific atherosclerosis of the carotid bulbs and proximal internal carotid arteries with approximately 25 percent narrowing bilaterally. The remainder of the internal carotid arteries demonstrate normal calibers and courses. Posterior circulation: The origins of the vertebral arteries both appear widely patent. The more superior extracranial portions of both vertebral arteries also demonstrate normal courses and calibers. They join to form a normal appearing basilar artery. Soft tissues: 1.4 centimeter right thyroid nodule. Visualized neck soft tissues otherwise demonstrate no suspicious abnormalities. Bones: No suspicious bony lesions. Visualized cervical spine appears normally aligned. IMPRESSION: 1. Acute large vessel intracranial arterial occlusion. No intracranial aneurysm or high-grade stenosis. 2. No acute carotid or vertebral artery dissection. 3. Less than 25 percent stenosis of the proximal internal carotid arteries in the neck. 4. Right thyroid nodule measuring 1.4 centimeter. Any quantitative measurements of stenosis were performed using NASCET criteria. Dictated by: Wilver Ventura M.D. on 07/29/2021 at 12:09 Approved by: Wilver Ventura M.D. on 07/29/2021 at 12:21 ADDENDUM: Due to a body maker machine setter error, the 1st impression point is incorrect and should state as follows: 1. No acute large vessel intracranial arterial occlusion. No intracranial aneurysm or high-grade stenosis. Dictated by: Wilver Ventura M.D. on 07/29/2021 at 12:49 Approved by: Wilver Ventura M.D. on 07/29/2021 at 12:52 Addendum Dictated By:Wilver Ventura MDAddendum Signed By:Addendum Cosigned By:DD/ TD/TT: 07/29/21 PROCEDURE: CT ANGIO HEAD AND NECK INDICATIONS: multple syncopal episodes TECHNIQUE: After the administration of intravenous contrast, 1 mm thick sections acquired from the aortic arch through the [place] of [place]. Post-contrast 4.5 mm thick sections then re-acquired from the foramen magnum to the vertex. 3-dimensional xqfbufp-wcfsojuhs-xlfhmcogck (MIP) and/or volume rendering reformats were acquired of the central intracranial vasculature and neck separately. COMPARISON: Same-day CT head. FINDINGS: Image quality: Excellent. BRAIN: CSF spaces: Ventricles are normal in size and shape. Basal cisterns are patent. No extra-axial fluid collections. Brain: No midline shift. No intracranial bleeds or masses. Hayes-white matter interface appears intact. Skull and face: Calvarium and facial bones appear intact, without suspicious lesions. Orbits appear normal. Sinuses: Sinuses and mastoids are clear. HEAD CT ANGIOGRAPHY: Anterior circulation: Intracranial internal carotid arteries are normal in size and flow. The flow within the paired anterior cerebral arteries is normal and symmetric. The flow within the middle cerebral arteries is normal and symmetric. The anterior communicating artery is seen. No aneurysms are seen. Posterior circulation: Visualized portions of the vertebral arteries demonstrate normal caliber, and join to form a normal appearing basilar artery. Flow within the posterior cerebral arteries is normal and symmetric. No aneurysms are seen. NECK CT ANGIOGRAPHY: Carotid system: The great vessels demonstrate a conventional anatomy as they arise from the aortic arch. The origins of the common carotid arteries appear patent. The common carotid arteries demonstrate normal caliber and courses. The bifurcation regions are both patent. There is calcific and noncalcific atherosclerosis of the carotid bulbs and proximal internal carotid arteries with approximately 25 percent narrowing bilaterally. The remainder of the internal carotid arteries demonstrate normal calibers and courses. Posterior circulation: The origins of the vertebral arteries both appear widely patent. The more superior extracranial portions of both vertebral arteries also demonstrate normal courses and calibers. They join to form a normal appearing basilar artery. Soft tissues: 1.4 centimeter right thyroid nodule. Visualized neck soft tissues otherwise demonstrate no suspicious abnormalities. Bones: No suspicious bony lesions. Visualized cervical spine appears normally aligned. IMPRESSION: 1. Acute large vessel intracranial arterial occlusion. No intracranial aneurysm or high-grade stenosis. 2. No acute carotid or vertebral artery dissection. 3. Less than 25 percent stenosis of the proximal internal carotid arteries in the neck. 4. Right thyroid nodule measuring 1.4 centimeter. Any quantitative measurements of stenosis were performed using NASCET criteria. Dictated by: Wilver Ventura M.D. on 07/29/2021 at 12:09 Approved by: Wilver Ventura M.D. on 07/29/2021 at 12:21 ECG Data Interpretation: Normal sinus rhythm rate 52 [place] interval 222 QRS 72 QTC 411 with PVC similar to previous EKG no ST changes mild artifact noted MDM Narrative Medical decision making narrative: Patient had a syncopal episode today after standing in anglican for 10 minutes. If he was diaphoretic as well. He had no chest pain or shortness of breath. He has had multiple very similar previous episodes. says that he has been worked up your Holter monitor for 30 days. Unsure carotids have ever been looked at. It has been awhile since he had 1. Today he has no focal neurologic deficits vitals are stable. CT angio does not show any critical stenosis. At this time I recommend outpatient follow-up and possible repeat Holter monitor. He is ambulatory in the ED without any difficulty and at his baseline. 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 He may need another Holter monitor. *Continue to take medications as directed *Follow up with your primary care provider in 2-3 days *Return to ER if you should have a her episode of passing out, chest pain, palpitations, dizziness, numbness tingling weakness or any new, worsening or concerning symptoms Referrals: Charisma Velazquez PA-C [Primary Care Provider] -
[2021-07-29 11:18] LABS: Add Manual Diff / Slide Review NO; Basophils Absolute Auto 0 /uL (0-100); Basophils Percent Auto 1.2 % (0-2); Eosinophils Absolute Auto 100 /uL (0-450); Eosinophils Percent Auto 2.9 % (2-4); Hematocrit 41.8 % (41-53); Hemoglobin 14.5 g/dL (13.5-17.5); Lymphocytes Absolute Auto 900 /uL (1100-4500); Lymphocytes Percent Auto 25.3 % (25-40); Mean Corpuscular HGB Conc 34.7 % (30-36); Mean Corpuscular Hemoglobin 32.5 PG (26-34); Mean Corpuscular Volume 93.8 fL (80-100); Monocytes Absolute Auto 500 /uL (0-900); Monocytes Percent Auto 13.8 % (3-14); Neutrophils Absolute Auto 2100 /uL (1500-7000); Neutrophils Percent Auto 56.8 % (50-75); Platelet Count 260 X10^3/uL (150-400); Red Blood Cell Count 4.46 X10^6/uL (4.5-5.9); Red Cell Distribution Width 13.1 % (11.6-14.8); White Blood Cell Count 3.6 X10^3/uL (4.5-11.0)
[2021-07-29 11:28] LABS: Alanine Aminotransferase 16 IU/L (<50); Albumin 3.9 g/dL (3.5-5.0); Albumin Globulin Ratio 1.4 (1.0-2.8); Alkaline Phosphatase 55 U/L (38-126); Aspartate Aminotransferase 30 IU/L (17-59); BUN Creatinine Ratio 8.6 (6-22); Bilirubin Total 0.8 mg/dL (0.2-1.3); Blood Urea Nitrogen 6 mg/dL (9-20); Calcium 8.8 mg/dL (8.4-10.2); Carbon Dioxide 26 mmol/L (22-32); Chloride 100 mmol/L (98-107); Creatine Kinase 60 U/L (55-170); Estimated Glomerular Filt Rate > 60.0 mL/min (>60); Globulin 2.7 g/dL (1.7-4.1); Glucose 104 mg/dL (80-110); HEMOLYSIS 36 (0-50); Lipase 107 U/L (23-300); Potassium 3.8 mmol/L (3.4-5.1); Sodium 133 mmol/L (137-145); Total Protein 6.6 g/dL (6.3-8.2)
[2021-07-29 11:39] LABS: Troponin I < 0.012 ng/mL (0.01-0.034)
--- NOTE | 2021-07-29 12:37 | DI.CT.S_ITS ---
PROCEDURE: CT ANGIO HEAD AND NECK INDICATIONS: multple syncopal episodes TECHNIQUE: After the administration of intravenous contrast, 1 mm thick sections acquired from the aortic arch through the [place] of [place]. Post-contrast 4.5 mm thick sections then re-acquired from the foramen magnum to the vertex. 3-dimensional hdlalci-rcheunebg-hwdufhmicw (MIP) and/or volume rendering reformats were acquired of the central intracranial vasculature and neck separately. COMPARISON: Same-day CT head. FINDINGS: Image quality: Excellent. BRAIN: CSF spaces: Ventricles are normal in size and shape. Basal cisterns are patent. No extra-axial fluid collections. Brain: No midline shift. No intracranial bleeds or masses. Hayes-white matter interface appears intact. Skull and face: Calvarium and facial bones appear intact, without suspicious lesions. Orbits appear normal. Sinuses: Sinuses and mastoids are clear. HEAD CT ANGIOGRAPHY: Anterior circulation: Intracranial internal carotid arteries are normal in size and flow. The flow within the paired anterior cerebral arteries is normal and symmetric. The flow within the middle cerebral arteries is normal and symmetric. The anterior communicating artery is seen. No aneurysms are seen. Posterior circulation: Visualized portions of the vertebral arteries demonstrate normal caliber, and join to form a normal appearing basilar artery. Flow within the posterior cerebral arteries is normal and symmetric. No aneurysms are seen. NECK CT ANGIOGRAPHY: Carotid system: The great vessels demonstrate a conventional anatomy as they arise from the aortic arch. The origins of the common carotid arteries appear patent. The common carotid arteries demonstrate normal caliber and courses. The bifurcation regions are both patent. There is calcific and noncalcific atherosclerosis of the carotid bulbs and proximal internal carotid arteries with approximately 25 percent narrowing bilaterally. The remainder of the internal carotid arteries demonstrate normal calibers and courses. Posterior circulation: The origins of the vertebral arteries both appear widely patent. The more superior extracranial portions of both vertebral arteries also demonstrate normal courses and calibers. They join to form a normal appearing basilar artery. Soft tissues: 1.4 centimeter right thyroid nodule. Visualized neck soft tissues otherwise demonstrate no suspicious abnormalities. Bones: No suspicious bony lesions. Visualized cervical spine appears normally aligned. IMPRESSION: 1. Acute large vessel intracranial arterial occlusion. No intracranial aneurysm or high-grade stenosis. 2. No acute carotid or vertebral artery dissection. 3. Less than 25 percent stenosis of the proximal internal carotid arteries in the neck. 4. Right thyroid nodule measuring 1.4 centimeter. Any quantitative measurements of stenosis were performed using NASCET criteria. Dictated by: Wilver Ventura M.D. on 07/29/2021 at 12:09 Approved by: Wilver Vnetura M.D. on 07/29/2021 at 12:21
--- NOTE | 2021-07-29 13:47 | PC.NURSE ---
ambulatory, stand by assist only. uses cane at home. ambulating at baseline no dizziness noted steady gate.
== END 2021-07-29 13:53 | disposition home or self-care (01) ==
PROVIDERS: Emergency Provider Emergency Medicine; PCP Physician Assistant Medical
DX: R55 Syncope and collapse (principal)
CPT/HCPCS: 36415; 70450; 70496; 70498; 71045; 80053; 81003; 82550; 83690; 84484; 85025; 93005; 99284; Q9967

== ENCOUNTER 2021-08-16 10:18 | Emergency (ER) | payer OTHER, SELFPAY ==
[2021-08-16] VITALS (21 sets, daily range): BP systolic 140–184; BP diastolic 60–74; PULSE 66–90; RESP 15–27; TEMP 36.7; O2SAT 92–100; BMI 25.1
--- NOTE | 2021-08-16 11:03 | DI.RAD.S_ITS ---
PROCEDURE: XR CHEST 1V INDICATIONS: weakness TECHNIQUE: One view of the chest was acquired. COMPARISON: [facility], CR, XR CHEST 1V, 07/29/2021, 11:07. FINDINGS: Surgical changes and devices: None. Lungs and pleura: Scattered subsegmental scarring and/or atelectasis. No acute consolidation. No pleural effusions or pneumothorax. Mediastinum: Mediastinal contours appear normal. Heart size is normal. Bones and chest wall: Multiple chronic right rib fractures. IMPRESSION: No acute disease. Dictated by: Kirby Quiros M.D. on 08/16/2021 at 11:22 Approved by: Kirby Quiros M.D. on 08/16/2021 at 11:23
[2021-08-16] MEDS: SODIUM CHLORIDE 0.9% 1,000 ML 1000 ML IV (11:08)
[2021-08-16 11:17] LABS: Alanine Aminotransferase 12 IU/L (<50); Albumin 3.9 g/dL (3.5-5.0); Albumin Globulin Ratio 1.3 (1.0-2.8); Alkaline Phosphatase 53 U/L (38-126); Aspartate Aminotransferase 30 IU/L (17-59); BUN Creatinine Ratio 16.4 (6-22); Bilirubin Total 1.6 mg/dL (0.2-1.3); Blood Urea Nitrogen 11 mg/dL (9-20); Calcium 8.9 mg/dL (8.4-10.2); Carbon Dioxide 31 mmol/L (22-32); Chloride 90 mmol/L (98-107); Creatine Kinase 57 U/L (55-170); Estimated Glomerular Filt Rate > 60.0 mL/min (>60); Glucose 116 mg/dL (80-110); HEMOLYSIS 15 (0-50); Lipase 1358 U/L (23-300); Potassium 3.8 mmol/L (3.4-5.1); Sodium 125 mmol/L (137-145); Total Protein 6.9 g/dL (6.3-8.2)
[2021-08-16 11:27] LABS: Add Manual Diff / Slide Review NO; Basophils Absolute Auto 0 /uL (0-100); Basophils Percent Auto 0.5 % (0-2); Eosinophils Absolute Auto 0 /uL (0-450); Eosinophils Percent Auto 0.2 % (2-4); Hematocrit 41.3 % (41-53); Hemoglobin 14.6 g/dL (13.5-17.5); Lymphocytes Absolute Auto 1000 /uL (1100-4500); Lymphocytes Percent Auto 14.3 % (25-40); Mean Corpuscular HGB Conc 35.4 % (30-36); Mean Corpuscular Volume 93.1 fL (80-100); Monocytes Absolute Auto 800 /uL (0-900); Monocytes Percent Auto 12.2 % (3-14); Neutrophils Absolute Auto 5000 /uL (1500-7000); Neutrophils Percent Auto 72.8 % (50-75); Platelet Count 249 X10^3/uL (150-400); Red Blood Cell Count 4.44 X10^6/uL (4.5-5.9); Red Cell Distribution Width 12.9 % (11.6-14.8); White Blood Cell Count 6.9 X10^3/uL (4.5-11.0)
[2021-08-16 11:29] LABS: NT-proBNP (BNP-Adult 18+) 529 pg/mL (<450); Troponin I < 0.012 ng/mL (0.01-0.034)
[2021-08-16 12:02] LABS: Lactate (Lactic Acid) 1.1 mmol/L (0.7-2.1)
[2021-08-16 12:03] LABS: COVID19 -Nasal RAPID Negative (Negative)
[2021-08-16 12:19] LABS: Procalcitonin 0.06 ng/mL (<0.5)
--- NOTE | 2021-08-16 13:39 | ED.FEVER ---
HPI - Fever General Chief Complaint: Fever Stated Complaint: elevated temp, weakness, orange urine Time Seen by Provider: 08/16/21 11:03 Source: patient, family () and EMS Mode of arrival: EMS Limitations: no limitations History of Present Illness HPI Narrative: This is a 76-year-old male comes emergency department with complaint of increasing weakness. Patient himself has minimal complaints. EMS states that he has been weak, and that his states that he is having into increasing difficulty getting around the house as well as decreased appetite dry heaves and increasing confusion. Patient himself interacts and cooperates with exam but has minimal information to offer. His states that he started complaining of headaches for 3 days starting on Friday. She noted he has had some increasing weakness over the last couple weeks but significantly worsened over the past several days and that he started using a walker and now cannot even walk around the house and cannot even get off the toilet without significant assistance from her and her son. She states he has had some falls and he had a syncopal episode in the last several weeks. She states he started having nighttime incontinence which is new and that he is unaware that he has even urinated himself which is very atypical. He has had decreased appetite. He denies chest pain he denies shortness of breath. He has had some nausea and dry heaves at home as well as here in the department. He had a normal soft bowel movement today with no bright red blood or melena. She states she has had some mild baseline confusion but that he has had significant worsening over the past several days. She has not appreciated any fevers. He was clammy 1 day. He has not had any new medication changes. He takes simvastatin, metoprolol and additional blood pressure medications. He has not any anticoagulation or aspirin. No prior surgeries. No allergies. No tobacco. He drinks 1-2 tall boy beers daily but has never had any withdrawal symptoms that his appreciate. No illicit drugs. His primary care provider is RAHAT Velazquez. Related Data Home Medications Medication Instructions Recorded Confirmed metoprolol tartrate 50 mg tablet 100 mg DAILY 08/16/21 08/16/21 simvastatin 40 mg tablet 40 mg BEDTIME 08/16/21 08/16/21 triamterene 37.5 1 tab DAILY 08/16/21 08/16/21 mg-hydrochlorothiazide 25 mg tablet Allergies Allergy/AdvReac Type Severity Reaction Status Date / Time No Known Drug Allergies Allergy Verified 08/16/21 10:33 Review of Systems Review of Systems ROS Unobtainable: All systems reviewed & are unremarkable except as noted in HPI and below Patient History Medical History Depression Shingles Social History Smoking Status: Former smoker Smoking Status: Former smoker alcohol intake frequency: 0-2 drinks per day Alcohol type: beer Substance Use Type: does not use Exam Narrative Exam Narrative: GEN: well nourished, elderly appearing male, alert, oriented to self, patient appears to be in mild distress. Patient will answer questions but has difficulty even seems confused when asking if he has chest pain he answers that he used to smoke. Patient also urinated on himself and did not realize that he was urinating, atypically per . HEENT: Atraumatic, pupils are equal round reactive to light, extraocular movements are intact, nares are clear, TMs are clear with no fluid, there is no conjunctival pallor. Throat is clear without any exudates, erythema, tonsillar enlargement or uvular deviation, no facial droop. Clear speech. HEART: Regular rate and rhythm without murmur, clicks, rubs. Pulses are equal in upper and lower extremities LUNGS:Lungs clear to auscultation, no wheezes, rales, crackles, chest moves symmetrically, no tachypnea accessory muscle use. ABD:bowel sounds normal, soft, non-tender, no guarding, rebound, rigidity, no masses noted, no hepatosplenomegaly, nondistended. :No CVA tenderness MSCL: Non-tender, normal range of motion of upper extremity patient does have normal movement in his lower extremities. NEURO:CN 2-12 intact, sensation normal SKIN: No rash, erythema or other skin changes noted Initial Vital Signs Initial Vital Signs: Vital Signs Temperature 98.1 F 08/16/21 10:25 Pulse Rate 75 08/16/21 10:25 Respiratory Rate 18 08/16/21 10:25 Blood Pressure 153/71 H 08/16/21 10:25 Pulse Oximetry 97 08/16/21 10:25 Scores GCS [place] coma scale eye opening: Spontaneous [place] coma scale verbal response: Confused [place] coma scale motor response: Obey commands [place] coma scale total score: 14 Course Orders Ordered: ED Orders 08/16/21 10:25 Complete Blood Count AUTO DIFF Stat Comprehensive Metabolic Panel Stat Lactate (Lactic Acid) Stat Lipase Stat NT-proBNP (BNP-Adult 18+) Stat Troponin & CK Cardiac Panel Stat 08/16/21 11:03 XR chest 1V Stat EKG-12 Lead Stat 08/16/21 11:13 COVID19 -Nasal swab/Pre-Proc Stat 08/16/21 11:40 Procalcitonin Stat 08/16/21 11:52 Blood Culture Stat 08/16/21 13:59 CT abdomen pelvis w con Stat CT head/brain wo con Stat 08/16/21 14:40 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 Reviewing goals of care and current preferences. At this time there are open to discussing with Neurosurgery about possible options but are not had a mint for treatment at all costs. Patient is confused and his as his primary decision maker. Consultations Consultation #1: Spoke with Dr. Hopper accepts for transfer at [facility] ED. Accepted for transfer for subudal bleed that appears to be acute on subacute. Head CT from 07/29 shows no bleed. Today has older portion along with newer acute bleed. Mild midline shift in a patient that is not anticoagulated. Vital Signs Vital signs: Vital Signs - 8 hr 08/16/21 11:19 08/16/21 11:30 08/16/21 11:59 Pulse Rate 68 67 71 Respiratory Rate 16 15 15 Blood Pressure 171/71 H Pulse Oximetry 99 98 99 08/16/21 12:00 08/16/21 12:30 08/16/21 12:31 Pulse Rate 66 74 74 Respiratory Rate 15 17 17 Blood Pressure 172/72 H 140/60 Pulse Oximetry 100 99 99 08/16/21 13:00 08/16/21 13:30 08/16/21 14:00 Pulse Rate 79 90 80 Respiratory Rate 20 22 23 Blood Pressure 172/72 H Pulse Oximetry 97 99 99 08/16/21 14:01 08/16/21 14:29 08/16/21 14:30 Pulse Rate 80 74 73 Respiratory Rate 25 H 15 17 Blood Pressure 142/65 H 171/69 H 152/70 H Pulse Oximetry 92 99 99 08/16/21 15:00 08/16/21 15:30 08/16/21 15:50 Pulse Rate 67 74 75 Respiratory Rate 17 19 23 Blood Pressure 169/73 H 182/72 H 141/65 H Pulse Oximetry 97 98 98 08/16/21 16:00 08/16/21 16:30 08/16/21 17:00 Pulse Rate 79 78 80 Respiratory Rate 26 H 19 22 Blood Pressure 168/70 H 152/67 H Pulse Oximetry 98 99 08/16/21 17:01 08/16/21 17:30 Pulse Rate 77 80 Respiratory Rate 27 H 22 Blood Pressure 184/74 H 163/74 H Pulse Oximetry 92 98 MDM - Fever Lab Data Result diagrams: 08/16/21 10:25 08/16/21 10:25 Labs: Lab Results 08/16/21 08/16/21 08/16/21 Range/Units 10:25 10:25 10:25 WBC 6.9 (4.5-11.0) X10^3/uL RBC 4.44 L (4.5-5.9) X10^6/uL Hgb 14.6 (13.5-17.5) g/dL Hct 41.3 (41-53) % MCV 93.1 (80-100) fL MCH 33.0 (26-34) PG MCHC 35.4 (30-36) % RDW 12.9 (11.6-14.8) % Plt Count 249 (150-400) X10^3/uL Neut % (Auto) 72.8 (50-75) % Lymph % (Auto) 14.3 L (25-40) % Starr % (Auto) 12.2 (3-14) % Eos % (Auto) 0.2 L (2-4) % Baso % (Auto) 0.5 (0-2) % Neut # (Auto) 5000 (7861-5485) /uL Lymph # (Auto) 1000 L (9137-4310) /uL Starr # (Auto) 800 (0-900) /uL Eos # (Auto) 0 (0-450) /uL Baso # (Auto) 0 (0-100) /uL Sodium 125 L (137-145) mmol/L Potassium 3.8 (3.4-5.1) mmol/L Chloride 90 L (98-107) mmol/L Carbon Dioxide 31 (22-32) mmol/L BUN 11 (9-20) mg/dL Creatinine 0.67 (0.66-1.25) mg/dL Estimated GFR > 60.0 (>60) mL/min BUN/Creatinine Ratio 16.4 (6-22) Glucose 116 H (80-110) mg/dL Lactate 1.1 (0.7-2.1) mmol/L Calcium 8.9 (8.4-10.2) mg/dL Total Bilirubin 1.6 H (0.2-1.3) mg/dL AST 30 (17-59) IU/L ALT 12 (<50) IU/L Alkaline Phosphatase 53 (38-126) U/L Total Creatine Kinase 57 (55-170) U/L CK-MB (CK-2) TNP CK-MB (CK-2) Rel Index TNP Troponin I < 0.012 (0.01-0.034) ng/mL NT-Pro-B Natriuret Pep 529 H (<450) pg/mL Total Protein 6.9 (6.3-8.2) g/dL Albumin 3.9 (3.5-5.0) g/dL Globulin 3.0 (1.7-4.1) g/dL Albumin/Globulin Ratio 1.3 (1.0-2.8) Lipase 1358 H (23-300) U/L Procalcitonin (<0.5) ng/mL SARS-CoV-2 (PCR) (Negative) 09/16/21 09/16/21 09/16/21 Range/Units 11:13 11:40 14:40 WBC (4.5-11.0) X10^3/uL RBC (4.5-5.9) X10^6/uL Hgb (13.5-17.5) g/dL Hct (41-53) % MCV (80-100) fL MCH (26-34) PG MCHC (30-36) % RDW (11.6-14.8) % Plt Count (150-400) X10^3/uL Neut % (Auto) (50-75) % Lymph % (Auto) (25-40) % Starr % (Auto) (3-14) % Eos % (Auto) (2-4) % Baso % (Auto) (0-2) % Neut # (Auto) (9403-9199) /uL Lymph # (Auto) (9191-9581) /uL Starr # (Auto) (0-900) /uL Eos # (Auto) (0-450) /uL Baso # (Auto) (0-100) /uL Sodium (137-145) mmol/L Potassium (3.4-5.1) mmol/L Chloride (98-107) mmol/L Carbon Dioxide (22-32) mmol/L BUN (9-20) mg/dL Creatinine (0.66-1.25) mg/dL Estimated GFR (>60) mL/min BUN/Creatinine Ratio (6-22) Glucose (80-110) mg/dL Lactate (0.7-2.1) mmol/L Calcium (8.4-10.2) mg/dL Total Bilirubin (0.2-1.3) mg/dL AST (17-59) IU/L ALT (<50) IU/L Alkaline Phosphatase (38-126) U/L Total Creatine Kinase (55-170) U/L CK-MB (CK-2) CK-MB (CK-2) Rel Index Troponin I (0.01-0.034) ng/mL NT-Pro-B Natriuret Pep (<450) pg/mL Total Protein (6.3-8.2) g/dL Albumin (3.5-5.0) g/dL Globulin (1.7-4.1) g/dL Albumin/Globulin Ratio (1.0-2.8) Lipase (23-300) U/L Procalcitonin 0.06 (<0.5) ng/mL SARS-CoV-2 (PCR) Negative Negative (Negative) Urine Dip Bedside Urine Glucose Negative Bedside Urine Bilirubin - Negative Bedside Urine Ketone +++ 80 Urine Specific Pinnacle 1.010 Bedside Urine Occult Blood - Negative Bedside Urine pH 7.0 Bedside Urine Protein - Negative Bedside Urine Urobilinogen +/- 1mg Bedside Urine Nitrite - Negative Bedside Urine Leukocytes - Negative Esterase Imaging Data Chest x-ray: Radiologist's Impression: [address] [address] XRay Report Signed Patient: Neymar Don MR#: [id number] : 1945 Acct:[id number] Age/Sex: 76 / M Date of Service: 08/16/21 Loc: ED Accession Number: [id number] ?? Procedure: XR chest 1V Ordering Provider: Sarah Evans D.O. PROCEDURE:? XR CHEST 1V ? INDICATIONS:? weakness ? TECHNIQUE:? One view of the chest was acquired.? ? COMPARISON:? Formerly [facility], , XR CHEST 1V, 07/29/2021, 11:07. ? FINDINGS:? ? Surgical changes and devices:? None.? ? Lungs and pleura:? Scattered subsegmental scarring and/or atelectasis.? No acute consolidation.? No pleural effusions or pneumothorax.? ? Mediastinum:? Mediastinal contours appear normal.? Heart size is normal.? ? Bones and chest wall:? Multiple chronic right rib fractures. ? IMPRESSION:? No acute disease. ? ? Dictated by: Kirby Quiros M.D. on 08/16/2021 at 11:22 ? ? Approved by: Kirby Quiros M.D. on 08/16/2021 at 11:23?? CT scan - head: Radiologist's Impression: [address] [address] [address] Scan Report Signed Patient: Neymar Don MR#: [id number] : 1945 Acct:[id number] Age/Sex: 76 / M Date of Service: 09/16/21 Loc: ED Accession Number: [id number] ?? Procedure: CT head/brain wo con Ordering Provider: Sarah Evans D.O. PROCEDURE:? CT HEAD/BRAIN WO CON ? INDICATIONS:? weakness, incr confusion, hyponatremia, falls ? TECHNIQUE:? Noncontrast 4.5 mm thick angled axial sections acquired from the foramen magnum to the vertex, with coronal and sagittal reformats.? For radiation dose reduction, the following was used:? automated exposure control, adjustment of mA and/or kV according to patient size.? ? COMPARISON:? Formerly [facility], CT, CT ABDOMEN PELVIS W CON, 08/16/2021, 14:05.? [facility], CT, CT HEAD/BRAIN WO CON, 08/22/2019, 13:33.? Former[facility], CT, CT HEAD/BRAIN WO CON, 07/29/2021, 11:16. ? FINDINGS:? Image quality:? Excellent.? ? CSF spaces:? Basal cisterns are patent.? Brain:? Right parietal extra-axial blood measuring 3.7 x 0.9 cm in cross-sectional dimensions on image 18/4.? There is lower attenuation right subdural fluid collection with trace leftward midline shift measuring 1-2 mm. ? Skull and face:? Calvarium and visualized facial bones are intact, without suspicious lesions.? ? Sinuses:? Visualized sinuses and mastoids are clear.? ? IMPRESSION:? Acute right parietal extra-axial hemorrhage.? Additional right low attenuation /subdural fluid collection.? This raises the possibility of mixed acute on chronic intracranial hemorrhage. ? Trace leftward midline shift. ? Findings (including all critical results) and recommendations were personally telephoned and discussed with Dr. Evans on 08-16-21 14:55 ? ? ? Dictated by: Kirby Quiros M.D. on 08/16/2021 at 14:30 ? ? Approved by: Kirby Quiros M.D. on 08/16/2021 at 15:01?? CT scan - abdomen/pelvis: Radiologist's Impression: [address] [address] [address] Scan Report Signed Patient: Neymar Don MR#: [id number] : 1945 Acct:[id number] Age/Sex: 76 / M Date of Service: 08/16/21 Loc: ED Accession Number: [id number] ?? Procedure: CT abdomen pelvis w con Ordering Provider: Sarah Evans D.O. PROCEDURE:? CT ABDOMEN PELVIS W CON ? INDICATIONS:? weakness, incr confusion, pancreatitis. ? TECHNIQUE:? After the administration of intravenous contrast, axial sections acquired from the lung bases to the pubic symphysis.? Coronal and sagittal reformats were performed.? For radiation dose reduction, the following was used:? automated exposure control, adjustment of mA and/or kV according to patient size.? ? COMPARISON:? None. ? FINDINGS: ABDOMEN:? Lung bases:? Scattered subsegmental atelectasis and/or scarring. No focal consolidation.? ? Heart:? No significant findings.? Trace pericardial fluid ? Liver: Normal. Gallbladder:? Largely decompressed otherwise unremarkable. Bile ducts: Normal. Pancreas: Normal.? Spleen: Normal.? Adrenals: Normal. Kidneys and Ureters:? Simple appearing right renal cyst measuring 3.7 cm.? No hydronephrosis. Stomach and duodenum: Normal. Bowel: Colonic diverticulosis is seen without evidence of acute complication.? Scattered air-fluid levels in the small bowel, without definite pathologic dilatation. Other:? No free fluid or air.? Abdominal nodes:? Normal. Aorta and IVC: Normal in size.? ? Ventral wall: Normal. ? PELVIS:? ? Bladder: Normal.? Inguinal region: No hernia.? Pelvic nodes: Normal.? ? Bones:? Subacute versus chronic lower rib fractures.? Diffuse spondylosis.? No compression fracture seen.? Multilevel degenerative endplate sclerosis and spurring.? Diffuse facet arthropathy.? ? ? IMPRESSION:? ? Normal CT appearance of the pancreas although recommend correlation with enzymes. ? Simple right renal cyst ? Colonic diverticulosis is seen without evidence of acute complication. ? Scattered air-fluid level seen throughout the small bowel raising possibility of a low-grade enteritis, dysmotility and or malabsorption. ? Elsewhere, no acute abnormality ? ? ? Dictated by: Kirby Quiros M.D. on 08/16/2021 at 14:43 ? ? Approved by: Kirby Quiros M.D. on 08/16/2021 at 15:07?? CT - cervical spine: Radiologist's Impression: [address] [address] [address] Scan Report Signed Patient: Neymar Don MR#: [id number] : 1945 Acct:[id number] Age/Sex: 76 / M Date of Service: 08/16/21 Loc: ED Accession Number: [id number] ?? Procedure: CT cervical spine wo con Ordering Provider: Sraah Evans D.O. PROCEDURE:? CT CERVICAL SPINE WO CON ? INDICATIONS:? fall, SDH. ? TECHNIQUE:? Noncontrast 3 mm thick sections acquired from the skull base to the T4 level.? Sagittal and coronal reformats were then constructed.? For radiation dose reduction, the following was used:? automated exposure control, adjustment of mA and/or kV according to patient size.? ? COMPARISON:? Former[facility], CT, CT ANGIO HEAD AND NECK, 07/29/2021, 12:45.? Former[facility], CT, CT HEAD/BRAIN WO CON, 08/16/2021, 14:05. ? FINDINGS:? Image quality:? Excellent.? ? Bones:? No fractures or dislocations.? Remote, healed fractures can be seen involving the right posterolateral ribs.? No acute rib fractures are seen. ? There is at least moderate disc space narrowing seen at C3-C4, with moderate to severe disc space narrowing at C4-C5, C5-C6, C6-C7, C7-T1, T1-T2, and T2-T3.? At least partially bridging anterior osteophytes are seen C3 through T2.? Posteriorly directed endplate osteophytes are seen, which are worst at the C5-C6 level.? There is minimal retrolisthesis at C5-C6 and minimal anterolisthesis at C7-T1. Focal degenerative change is seen involving the C1-C2 interface anteriorly.? Calcified pannus can be seen posterior to the dens. ? Soft tissues:? Prevertebral soft tissues are normal in thickness.? No paravertebral hematomas.? No apical pneumothoraces.? Atherosclerotic calcification is noted.? ? ? IMPRESSION:? Negative for acute fracture. ? Advanced cervical spine degenerative changes are seen. ? Remote, healed right posterolateral rib fractures incidentally noted. ? Dictated by: Dillon Elizabeth M.D. on 08/16/2021 at 14:39 ? ? Approved by: Tereso VelázquezD. on 08/16/2021 at 14:42? ECG Data Attestation: I personally reviewed and interpreted this ECG as follows: Prior ECG tracings: available for review Interpretation: Sinus rhythm, rate of 73 IN 176 QRS is 76 and QTC 425. Left axis deviation. No specific changes. Patient has prior from 07/29/2021 which appears similar. MDM Narrative Medical decision making narrative: This is a 76-year-old male with increasing weakness and confusion as well as falls and inability to ambulate safely. Patient has also had some nausea and vomiting with dry heaves recently. He appears to be hyponatremic, secondary to his fall and complaint of headache for the past 3 days to his although described as moderate head CT was obtained. He also has elevation in his lipase so CT abnormalities included he is nontender on exam he denies pain but has had nausea vomiting dry heaves. His has never appreciated any withdrawal like symptoms although he does drink 1-2 ?tall beers daily which are 8-10% alcohol. Patient does state he some baseline confusion but has had rapid worsening as well as his tetanus the last several days. He has been afebrile but cultures were obtained. He able to urinate a large amount but this was unfortunately missed her bladder scanning him at the time. Plan to obtain a urine sample for evaluation for infection as well. Patient's is hypertensive but his afebrile department without any other signs of sepsis. Patient's CT shows acute on subacute bleed for subdural. No obvious pancreatitis or changes on his CT abdomen pelvis. C-spine CT was added on secondary to patients bleed and is negative. We discussed with patient and his about goals of care. At this time they are open to possible intervention if this was offered to them. Critical Care Time Critical Care Time Critical Care Time: Yes Total Critical Care Time: 55 Attestation: The high probability of a clinically significant, sudden or life threatening deterioration of the [55] system(s) required my full and direct attention, intervention and personal management. The aggregate critical care time was [] minutes. This time is in addition to time spent performing reported procedures but includes the following: [x] Data Review and interpretation [x] Patient assessment and monitoring of vital signs [x] Documentation [x] Medication orders and management Discharge Plan Departure Patient Disposition: Xfer Acute Care Hospital Clinical Impression: Hyponatremia, Pancreatitis, SDH (subdural hematoma) Prescriptions: No Action simvastatin 40 mg tablet 40 mg BEDTIME RF: 0 metoprolol tartrate 50 mg tablet 100 mg DAILY RF: 0 triamterene-hydrochlorothiazid 37.5-25 mg tablet 1 tab DAILY RF: 0 Referrals: Charisma Velazquez PA-C [Primary Care Provider] -
[2021-08-16] MEDS: ONDANSETRON 4 MG/2 ML INJ IV (13:42)
--- NOTE | 2021-08-16 13:59 | DI.CT.S_ITS ---
PROCEDURE: CT ABDOMEN PELVIS W CON INDICATIONS: weakness, incr confusion, pancreatitis. TECHNIQUE: After the administration of intravenous contrast, axial sections acquired from the lung bases to the pubic symphysis. Coronal and sagittal reformats were performed. For radiation dose reduction, the following was used: automated exposure control, adjustment of mA and/or kV according to patient size. COMPARISON: None. FINDINGS: ABDOMEN: Lung bases: Scattered subsegmental atelectasis and/or scarring. No focal consolidation. Heart: No significant findings. Trace pericardial fluid Liver: Normal. Gallbladder: Largely decompressed otherwise unremarkable. Bile ducts: Normal. Pancreas: Normal. Spleen: Normal. Adrenals: Normal. Kidneys and Ureters: Simple appearing right renal cyst measuring 3.7 cm. No hydronephrosis. Stomach and duodenum: Normal. Bowel: Colonic diverticulosis is seen without evidence of acute complication. Scattered air-fluid levels in the small bowel, without definite pathologic dilatation. Other: No free fluid or air. Abdominal nodes: Normal. Aorta and IVC: Normal in size. Ventral wall: Normal. PELVIS: Bladder: Normal. Inguinal region: No hernia. Pelvic nodes: Normal. Bones: Subacute versus chronic lower rib fractures. Diffuse spondylosis. No compression fracture seen. Multilevel degenerative endplate sclerosis and spurring. Diffuse facet arthropathy. IMPRESSION: Normal CT appearance of the pancreas although recommend correlation with enzymes. Simple right renal cyst Colonic diverticulosis is seen without evidence of acute complication. Scattered air-fluid level seen throughout the small bowel raising possibility of a low-grade enteritis, dysmotility and or malabsorption. Elsewhere, no acute abnormality Dictated by: Kirby Quiros M.D. on 08/16/2021 at 14:43 Approved by: Kirby Quiros M.D. on 08/16/2021 at 15:07
--- NOTE | 2021-08-16 13:59 | DI.CT.S_ITS ---
PROCEDURE: CT HEAD/BRAIN WO CON INDICATIONS: weakness, incr confusion, hyponatremia, falls TECHNIQUE: Noncontrast 4.5 mm thick angled axial sections acquired from the foramen magnum to the vertex, with coronal and sagittal reformats. For radiation dose reduction, the following was used: automated exposure control, adjustment of mA and/or kV according to patient size. COMPARISON: [facility], CT, CT ABDOMEN PELVIS W CON, 08/16/2021, 14:05. [facility], CT, CT HEAD/BRAIN WO CON, 08/22/2019, 13:33. [facility], CT, CT HEAD/BRAIN WO CON, 07/29/2021, 11:16. FINDINGS: Image quality: Excellent. CSF spaces: Basal cisterns are patent. Brain: Right parietal extra-axial blood measuring 3.7 x 0.9 cm in cross-sectional dimensions on image 18/4. There is lower attenuation right subdural fluid collection with trace leftward midline shift measuring 1-2 mm. Skull and face: Calvarium and visualized facial bones are intact, without suspicious lesions. Sinuses: Visualized sinuses and mastoids are clear. IMPRESSION: Acute right parietal extra-axial hemorrhage. Additional right low attenuation /subdural fluid collection. This raises the possibility of mixed acute on chronic intracranial hemorrhage. Trace leftward midline shift. Findings (including all critical results) and recommendations were personally telephoned and discussed with Dr. Evans on 08-16-21 14:55 Dictated by: Kirby Quiros M.D. on 08/16/2021 at 14:30 Approved by: Kirby Quiros M.D. on 08/16/2021 at 15:01
--- NOTE | 2021-08-16 14:52 | DI.CT.S_ITS ---
PROCEDURE: CT CERVICAL SPINE WO CON INDICATIONS: fall, SDH. TECHNIQUE: Noncontrast 3 mm thick sections acquired from the skull base to the T4 level. Sagittal and coronal reformats were then constructed. For radiation dose reduction, the following was used: automated exposure control, adjustment of mA and/or kV according to patient size. COMPARISON: [facility], CT, CT ANGIO HEAD AND NECK, 07/29/2021, 12:45. [facility], CT, CT HEAD/BRAIN WO CON, 08/16/2021, 14:05. FINDINGS: Image quality: Excellent. Bones: No fractures or dislocations. Remote, healed fractures can be seen involving the right posterolateral ribs. No acute rib fractures are seen. There is at least moderate disc space narrowing seen at C3-C4, with moderate to severe disc space narrowing at C4-C5, C5-C6, C6-C7, C7-T1, T1-T2, and T2-T3. At least partially bridging anterior osteophytes are seen C3 through T2. Posteriorly directed endplate osteophytes are seen, which are worst at the C5-C6 level. There is minimal retrolisthesis at C5-C6 and minimal anterolisthesis at C7-T1. Focal degenerative change is seen involving the C1-C2 interface anteriorly. Calcified pannus can be seen posterior to the dens. Soft tissues: Prevertebral soft tissues are normal in thickness. No paravertebral hematomas. No apical pneumothoraces. Atherosclerotic calcification is noted. IMPRESSION: Negative for acute fracture. Advanced cervical spine degenerative changes are seen. Remote, healed right posterolateral rib fractures incidentally noted. Dictated by: Dillon Elizabeth M.D. on 08/16/2021 at 14:39 Approved by: Dillon Elizabeth M.D. on 08/16/2021 at 14:42
--- NOTE | 2021-08-16 15:22 | PC.NURSE ---
Condom catheter placed to collect urine sample
[2021-08-16 15:39] LABS: COVID19 - ADMIT (NP swab/PCR) Negative (Negative)
--- NOTE | 2021-08-16 17:33 | PC.NURSE ---
Report given to LIZETTE Potts flight nurse.
== END 2021-08-16 17:40 | disposition short-term general hospital (02) ==
PROVIDERS: Emergency Provider Emergency Medicine; PCP Physician Assistant Medical
DX: S06.5X0A Traumatic subdural hemorrhage without loss of consciousness, initial encounter (principal); E87.1 Hypo-osmolality and hyponatremia; K85.90 Acute pancreatitis without necrosis or infection, unspecified; R41.0 Disorientation, unspecified; R11.2 Nausea with vomiting, unspecified; I10 Essential (primary) hypertension; Z20.822 Contact with and (suspected) exposure to COVID-19; W19.XXXA Unspecified fall, initial encounter
CPT/HCPCS: 36415; 70450; 71045; 72125; 74177; 80053; 81003; 82550; 83605; 83690; 83880; 84145; 84484; 85025; 87040; 87635; 93005; 93010; 96361; 96374; 99285; 99291; C9803; J2405